=== PATIENT | female | born 1955 | race African-American/Black ===

== ENCOUNTER 2016-04-09 08:23 | Emergency (ER) ==
--- NOTE | 2016-04-09 09:22 | PROVIDER DOCUMENTATION ---
[facility] General - General Source: patient - History of Present Illness-[facility] General [facility] Location: reports: facial Quality of Pain: reports: pressure Severity: reports: mild Onset/Duration: reports: gradual, other (3 weeks) Timing: reports: still present, constant Prearrival Treatment: Initiated no prearrival treatment Associated Symptoms: reports: cough, facial pain/swelling, nasal congestion/ drainage, sore throat. denies: fever, tooth pain Locality of Occurance: Home Similar Symptoms Previously?: No Recently seen or treated by another doctor?: No <Collin Quick - Last Filed: 04/09/16 09:18> <Ezio Ribeiro I - Last Filed: 04/09/16 09:46> - General Chief Complaint: Cold Symptoms Stated Complaint: SINUS PAIN Time Seen by Provider: 04/09/16 09:18 Allergies/Adverse Reactions: Patient Allergies Allergy/AdvReac Type Severity Reaction Status Date / Time acetaminophen [From Tylenol] AdvReac Unknown Verified 02/24/16 09:21 Home Medications: Home Medication List Medication Instructions Recorded Confirmed Last Taken Type Atenolol 50 mg PO DAILY 11/01/11 04/09/16 04/09/16 07:00 History 50 MG Diltiazem HCl [Dilt-Xr] 240 mg PO DAILY 11/01/11 04/09/16 04/09/16 07:00 History 240 MG Losartan/Hydrochlorothiazide 1 each PO DAILY 01/08/15 04/09/16 04/09/16 07:00 History [Losartan-Hctz 100-25 mg Tab] 1 EACH Sulfamethoxazole/Trimethoprim 1 each PO BID #20 tablet 04/09/16 Unknown Rx [Bactrim Ds Tablet] - History of Present Illness-[facility] General Nature of Presenting Problem: Patient is a 61 y/o F that presents with 3 weeks of sinus pressure, headache, drainage, and cough. denies fever chills, n/v/d. (Collin Quick) Review of Systems - Adult - REVIEW OF SYSTEMS - ADULT Constitutional: denies: chills, fever Eyes: denies: decreased vision, blurred vision, double vision Ears, Nose, Mouth & Throat: reports: sinus problem, hoarseness, throat pain. denies: ear pain Cardiovascular: denies: chest pain, palpitations Respiratory: reports: cough. denies: shortness of breath, wheezing Gastrointestinal: denies: abdominal pain, diarrhea, nausea, vomiting Genitourinary: reports: no symptoms reported Musculoskeletal: reports: no symptoms reported Integumentary: reports: no symptoms reported Neurological: reports: no symptoms reported Psychiatric: reports: no symptoms reported Endocrine: reports: no symptoms reported Hematologic/Lymphatic: reports: no symptoms reported Allergic/Immunologic: reports: no symptoms reported All Other Systems: Reviewed and Negative <Collin Quick - Last Filed: 04/09/16 09:18> Past History - Adult - PAST MEDICAL HISTORY-ADULT Review of Records: reports: Old Records Reviewed, Nursing Assessment Review, Medications Reviewed Major Childhood Illnesses: reports: Hepatitis B Cardiovascular: reports: HTN Respiratory: reports: denies history Gastrointestinal: reports: denies history Obstetrical/Gynecological: reports: denies history Genitourinary: reports: denies history Musculoskeletal: reports: denies history Neurological: reports: denies history Endocrine/Immune: reports: denies history Other Conditions: reports: denies history - PRIOR SURGERIES/PROCEDURES Surgical/Procedure History: reports: hysterectomy - PRIOR HOSPITALIZATIONS Prior Hospitalizations: reports: other (tubal) - IMMUNIZATION STATUS Childhood Immunizations: See Nurse Assessment Flu Vaccine: See Nurse Assessment - FAMILY HISTORY Family History: reviewed, not pertinent - SOCIAL HISTORY Smoking: quit greater than 1 year, cigarettes Living Situation: family <Collin Quick - Last Filed: 04/09/16 09:18> Physical Exam- EENT - Physical Exam EENT Initial Vital Signs Reviewed: Yes General Appearance: alert, no apparent distress Eye Exam: bilateral eye: normal inspection, PERRL Ear Exam: bilateral ear: canal normal, TM normal Nasal Exam: normal inspection. negative: discharge, foreign body Throat Exam: normal mouth inspection, pharynx normal Neck: non-tender, full range of motion, normal inspection Respiratory: lungs clear, normal breath sounds, no respiratory distress, no accessory muscle use Cardiovascular: regular rate, rhythm, no edema, no murmur Abdominal Exam: normal bowel sounds, non tender, soft, no organomegaly, no pulsatile mass Extremity: normal range of motion, non-tender, normal inspection, no pedal edema Integumentary: normal color, warm/dry Neurologic: grossly normal, no motor/sensory deficits Psych/Mental Status: normal mood/affect, normal thought content, normal thought process, oriented x 3 <Collin Quick - Last Filed: 04/09/16 09:18> Progress <Collin Quick - Last Filed: 04/09/16 09:18> <Ezio Ribeiro I - Last Filed: 04/09/16 09:46> - PLAN OF CARE/RESULTS Progress/Plan/Lab Results: Vital Signs Temp Pulse Resp BP Pulse Ox 04/09/16 08:29 97.8 F 81 18 154/73 100 acetaminophen [From Tylenol] Adverse Reaction (Verified 02/24/16 09:21) Unknown affects her liver Atenolol 50 mg PO DAILY 11/01/11 Diltiazem HCl [Dilt-Xr] 240 mg PO DAILY 11/01/11 Losartan/Hydrochlorothiazide [Losartan-Hctz 100-25 mg Tab] 1 each PO DAILY 01/08 pt will be d/c home f/u with pcp, rx given, pt was clinically stable (Collin Quick) Departure - Departure Time of Disposition Order: 09:21 Certified Medical Emergency: Emergent <Collin Quick - Last Filed: 04/09/16 09:18> - Departure Time of Disposition Order: 09:45 <Ezio Ribeiro I - Last Filed: 04/09/16 09:46> - Departure DIAGNOSIS: Sinusitis, acute Qualifiers: Sinusitis location: frontal Recurrence: non-recurrent Qualified Code(s): J01.10 - Acute frontal sinusitis, unspecified Disposition: HOME 01 Condition: Stable Additional Instructions: ED Follow Up Instructions: You have been treated by a care provider in the Emergency Department. These instructions are being provided to you so you can have an understanding of how to care for yourself upon discharge. Upon discharge from the Emergency Department, you are responsible for making arrangements for follow-up care by a physician of your choice. Take all prescribed medications as directed. Return to the Emergency Department immediately for any new or worsening symptoms. You may call the Physician Referral phone number at [phone] to obtain a list of Physicians who are taking new patients. Prescriptions: Sulfamethoxazole/Trimethoprim [Bactrim Ds Tablet] 1 each PO BID #20 tablet Referrals: Santosh Bray MD [Primary Care Provider] - Call for Appoint. 1-2days Instructions: Sinusitis, [id number] Attestation - Scribe Verification/Attestation Scribe:: Collin Quick Acting as Scribe for:: Ezio Ribeiro Scribe documention review:: This chart was documented by a scribe and accurately reflects the service the provider performed and the decisions made by the provider. <Collin Quick - Last Filed: 04/09/16 09:18> Physician Attestation - Physician Attestation I, the provider, attest to the following statement:: Ezio Ribeiro Physician documentation Attestation:: This documentation recorded by the scribe accurately reflects the service I personally performed and the decisions made by me. <Collin Quick - Last Filed: 04/09/16 09:18>
[2016-04-09 10:06] VITALS: BP 131/80
== END 2016-04-09 10:06 | disposition home or self-care (01) ==
LOC: ED 08:23
DX: J01.10 Acute frontal sinusitis, unspecified (principal); R05 Cough; R09.81 Nasal congestion; J02.9 Acute pharyngitis, unspecified; J34.89 Other specified disorders of nose and nasal sinuses; R51 Headache; R49.0 Dysphonia; I10 Essential (primary) hypertension; B19.10 Unspecified viral hepatitis B without hepatic coma; Z79.899 Other long term (current) drug therapy; Z87.891 Personal history of nicotine dependence

== ENCOUNTER 2016-04-20 09:19 | Emergency (ER) ==
[2016-04-20 09:36] VITALS: BP 128/65
--- NOTE | 2016-04-20 10:01 | PROVIDER DOCUMENTATION ---
HPI-General Adult - General Source: patient - History of Present Illness -Gen Adult Nature of Presenting Problems: Reports to er with cc of sinus congestion,runny nose x 2 days. Denies n,v,f,ear pain. Location of Pain/Injury: reports: none Pain Radiation: reports: no radiation Quality of Pain: reports: aching Severity: reports: mild Onset/Duration: reports: 3 days ago Timing: reports: still present Similar Symptoms Previously?: No Recently seen or treated by another doctor?: No <Amada Wells - Last Filed: 04/20/16 09:59> <Brando Kidd - Last Filed: 04/20/16 10:09> - General Chief Complaint: Cold Symptoms Stated Complaint: SINUS SX Time Seen by Provider: 04/20/16 09:38 Allergies/Adverse Reactions: Patient Allergies Allergy/AdvReac Type Severity Reaction Status Date / Time acetaminophen [From Tylenol] AdvReac Unknown Verified 02/24/16 09:21 Home Medications: Home Medication List Medication Instructions Recorded Confirmed Last Taken Type Atenolol 50 mg PO DAILY 11/01/11 04/09/16 04/09/16 07:00 History 50 MG Diltiazem HCl [Dilt-Xr] 240 mg PO DAILY 11/01/11 04/09/16 04/09/16 07:00 History 240 MG Losartan/Hydrochlorothiazide 1 each PO DAILY 01/08/15 04/09/16 04/09/16 07:00 History [Losartan-Hctz 100-25 mg Tab] 1 EACH Sulfamethoxazole/Trimethoprim 1 each PO BID #20 tablet 04/09/16 Unknown Rx [Bactrim Ds Tablet] Fluticasone 50 Mcg Nasal [place] 1 spray NIALL DAILY #1 bottle 04/20/16 Unknown Rx [Flonase] Guaifenesin/D-Methorphan Hb/PE 1 each PO Q6-8H PRN PRN #14 tablet 04/20/16 Unknown Rx [Deconex Dmx Tablet] Review of Systems - Adult - REVIEW OF SYSTEMS - ADULT Constitutional: denies: chills, fever, fatique Eyes: reports: no symptoms reported Ears, Nose, Mouth & Throat: reports: sinus problem. denies: ear pain, throat pain Cardiovascular: denies: chest pain, irregular heart rate, orthopnea Respiratory: reports: no symptoms reported Gastrointestinal: reports: no symptoms reported Genitourinary: reports: no symptoms reported Musculoskeletal: reports: no symptoms reported Integumentary: reports: no symptoms reported Neurological: reports: no symptoms reported Psychiatric: reports: no symptoms reported Endocrine: reports: no symptoms reported Hematologic/Lymphatic: reports: no symptoms reported Allergic/Immunologic: reports: no symptoms reported All Other Systems: Reviewed and Negative <Amada Wells - Last Filed: 04/20/16 09:59> Past History - Adult - PAST MEDICAL HISTORY-ADULT Review of Records: reports: Nursing Assessment Review, Medications Reviewed Major Childhood Illnesses: reports: Hepatitis B Cardiovascular: reports: HTN Respiratory: reports: denies history Gastrointestinal: reports: denies history Obstetrical/Gynecological: reports: denies history Genitourinary: reports: denies history Musculoskeletal: reports: denies history Neurological: reports: denies history Endocrine/Immune: reports: denies history Other Conditions: reports: denies history - PRIOR SURGERIES/PROCEDURES Surgical/Procedure History: reports: hysterectomy - PRIOR HOSPITALIZATIONS Prior Hospitalizations: reports: other (tubal) - IMMUNIZATION STATUS Childhood Immunizations: See Nurse Assessment Flu Vaccine: See Nurse Assessment - FAMILY HISTORY Family History: reviewed, not pertinent - SOCIAL HISTORY Smoking: other (former) Substance Use: none/never <Amada Wells - Last Filed: 04/20/16 09:59> Physical Exam-General - PHYSICAL EXAM-ADULT Initial Vital Signs Reviewed: Yes - CONSTITUTIONAL General Appearance: appears well, alert, no apparent distress - EYES Eyes: PERRL/EOMI - HEAD, EARS, NOSE, MOUTH & THROAT HENMT: moist mucous membranes, pharynx normal, maxillary tenderness. negative: pharyngeal erythema - NECK Neck: non-tender, full range of motion, supple - RESPIRATORY Respiratory: chest non-tender, lungs clear, normal breath sounds - CARDIOVASCULAR Cardiovascular: regular rate, rhythm, no edema, no gallop, no JVD, no murmur - GASTROINTESTINAL (ABDOMEN) Abdominal Exam: non tender, soft, no organomegaly, no pulsatile mass - LYMPHATIC Lymphatic: no adenopathy - MUSCULOSKELETAL Back Exam: normal inspection, no CVA tenderness, no vertebral tenderness Extremity: normal range of motion, non-tender - SKIN Integumentary: normal color, normal turgor, warm/dry - PSYCHIATRIC Psych/Mental Status: normal mood/affect, normal thought content, normal thought process, oriented x 3 <Amada Wells - Last Filed: 04/20/16 09:59> Progress - PLAN OF CARE/RESULTS Progress/Plan/Lab Results: Vital Signs - 24 hr 04/20/16 09:34 Temperature 98.4 F Pulse Rate 68 Respiratory 16 Rate Blood Pressure 128/65 O2 Sat by Pulse 100 Oximetry <Amada Wells - Last Filed: 04/20/16 09:59> Departure <Amada Wells - Last Filed: 04/20/16 09:59> - Departure Time of Disposition Order: 10:08 Certified Medical Emergency: Urgent <Brando Kiddley - Last Filed: 04/20/16 10:09> - Departure DIAGNOSIS: Sinusitis, acute Qualifiers: Sinusitis location: pansinusitis Recurrence: non-recurrent Qualified Code(s): J01.40 - Acute pansinusitis, unspecified Disposition: HOME 01 Condition: Good Additional Instructions: Take medication as prescribed. Follow up with your primary care provider. ED Follow Up Instructions: You have been treated by a care provider in the Emergency Department. These instructions are being provided to you so you can have an understanding of how to care for yourself upon discharge. Upon discharge from the Emergency Department, you are responsible for making arrangements for follow-up care by a physician of your choice. Take all prescribed medications as directed. Return to the Emergency Department immediately for any new or worsening symptoms. You may call the Physician Referral phone number at [phone] to obtain a list of Physicians who are taking new patients. Prescriptions: Guaifenesin/D-Methorphan Hb/PE [Deconex Dmx Tablet] 1 each PO Q6-8H PRN PRN #14 tablet PRN Reason: Cough and congestion Fluticasone 50 Mcg Nasal [place] [Flonase] 1 spray NIALL DAILY #1 bottle Referrals: Santosh Bray MD [Primary Care Provider] - Attestation - Scribe Verification/Attestation Scribe:: Amada Wells Acting as Scribe for:: Brando Kidd Scribe documention review:: This chart was documented by a scribe and accurately reflects the service the provider performed and the decisions made by the provider. <Amada Wells - Last Filed: 04/20/16 09:59> - Physician/ ODALYS Attestation Patient care was provided by Advanced Practice Provider:: Yes Advanced Practice Provider:: Brando Kidd Advanced Practice Provider documentation review:: The Mid-level provider documentation, treatment plan and medical decision making was reviewed by the physician who agrees with all treatment and medical decision making by the MLP. <Brando Kidd - Last Filed: 04/20/16 10:09> Physician Attestation
== END 2016-04-20 10:24 | disposition home or self-care (01) ==
LOC: ED 09:19
DX: J01.40 Acute pansinusitis, unspecified (principal); I10 Essential (primary) hypertension; B19.10 Unspecified viral hepatitis B without hepatic coma; Z87.891 Personal history of nicotine dependence; Z79.899 Other long term (current) drug therapy
CPT/HCPCS: 99281